=== PATIENT | female | born 1950 | race Caucasian/White ===

== ENCOUNTER → 2021-01-14 | Day surgery (SDC) | payer MEDICARE, OTHER ==
[~2021-01-14] VITALS: Ht 160 cm; Wt 86.6 kg
[~2021-01-14] MED LIST: ASPIRIN325 MG PO; CARDIZEM CD240 MG PO; CLONAZEPAM0.5 MG PO; EFFEXOR XR75 MG PO; EFFEXOR-XR 75 M75 MG PO; FOLIC ACID1 MG PO; FUROSEMIDE 20MG20 MG PO; IRON 100 PLUS1 EACH PO; KLOR-CON SPRIN10 MEQ PO; METFORMIN HCL500 MG PO; NEXIUM40 MG PO; NITROQUIK SL0.4 MG SL; NORCO 5-325 TA1 EAC1 PO; PERCOCET 5-3251 EACH PO; PRINIVIL10 MG PO; PRINIVIL20 MG PO; SYNTHROID100 MCG PO; SYNTHROID125 MCG PO; TRAZODONE 100M100 MG PO; XARELTO10 MG PO; ZOCOR20 MG PO
[2021-01-14 10:13] LABS: HCT 30.5 % (37.0-47.0); HGB 9.5 g/dl (12.5-16.0); MCH 22.8 pg (25.0-31.0); MCHC 31.1 g/dL (32.0-36.0); MCV 73.1 fL (78.0-100.0); MPV 9.9 fL (6.0-9.5); RBC 4.17 M/uL (4.20-5.40); WBC 6.7 K/uL (4.0-10.5)
[2021-01-14 10:37] LABS: ALBUMIN 3.9 g/dL (3.4-5.0); BILIRUBIN - TOTAL 0.4 mg/dL (0.2-1.0); BUN/CREAT RATIO (CALC) 14.7 RATIO; CREATININE 0.95 mg/dL (0.51-0.95); GLOBULIN (CALCULATION) 4.5 g/dL; POTASSIUM 3.9 mmol/L (3.5-5.1); TOTAL PROTEIN 8.4 g/dL (6.4-8.2)
== END | disposition home or self-care (01) ==
LOC: FAS 08:57
PROVIDERS: Surgery
DX: K22.2 Esophageal obstruction (principal); D64.9 Anemia, unspecified; K31.89 Other diseases of stomach and duodenum; K21.00 Gastro-esophageal reflux disease with esophagitis, without bleeding; K44.9 Diaphragmatic hernia without obstruction or gangrene; K57.30 Diverticulosis of large intestine without perforation or abscess without bleeding; E03.9 Hypothyroidism, unspecified; E11.9 Type 2 diabetes mellitus without complications; M19.90 Unspecified osteoarthritis, unspecified site; G47.30 Sleep apnea, unspecified; I10 Essential (primary) hypertension; I25.10 Atherosclerotic heart disease of native coronary artery without angina pectoris; G89.29 Other chronic pain; R10.31 Right lower quadrant pain; E78.00 Pure hypercholesterolemia, unspecified; E78.5 Hyperlipidemia, unspecified; Z86.010 Personal history of colon polyps; Z79.82 Long term (current) use of aspirin; Z79.84 Long term (current) use of oral hypoglycemic drugs; Z79.899 Other long term (current) drug therapy; Z88.0 Allergy status to penicillin; Z95.5 Presence of coronary angioplasty implant and graft; Z90.49 Acquired absence of other specified parts of digestive tract
CPT/HCPCS: 36415; 80053; 88305; C1726; J2704; J7120